=== PATIENT | female | born 1935 | race Caucasian/White ===

== ENCOUNTER 2016-09-17 19:57 | Inpatient (IN) | payer MEDICARE, BC ==
[2016-09-17] MEDS ORDERED: ACETAMINOPHEN 325 MG TABLET PO ONE (21:10)
--- NOTE | 2016-09-17 21:12 | ER Document Report ---
ED Hip Pain/Injury - General Chief Complaint: Hip Pain Stated Complaint: HIP PAIN Time Seen by Provider: 09/17/16 20:24 Mode of Arrival: Medic Information source: Patient, Relative Notes: This is an 81-year-old female who presents with left hip pain after falling at [employer]. She states that about 1900 she was using her walker to walk in the aisle of the [employer] and she slipped and fell onto her left hip. She did not hit her head and she did not lose consciousness. She complains of left hip pain and left foot pain. She has been able to ambulate a few steps but with significant pain. Of note she has a prior left hip replacement done in 2011 and had a periprosthetic spiral femur fracture in February 2016. TRAVEL OUTSIDE OF THE [place] IN LAST 30 DAYS: No - Related Data Allergies/Adverse Reactions: naproxen Allergy (Verified 03/03/16 11:18) Past Medical History - General Information source: Patient, [facility] Records - Social History Smoking Status: Never Smoker Chew tobacco use (# tins/day): No Frequency of alcohol use: None Drug Abuse: None Family History: None Patient has suicidal ideation: No Patient has homicidal ideation: No - Past Medical History Cardiac Medical History: Reports: Hx Hypercholesterolemia, Hx Hypertension Renal/ Medical History: Denies: Hx Peritoneal Dialysis Musculoskeltal Medical History: Reports Hx Arthritis Psychiatric Medical History: Denies: Hx Depression Past Surgical History: Reports: Hx Hysterectomy, Hx Mastectomy - L, Hx Orthopedic Surgery - Bilat Hip Replacement, L Knee Replacement, Hx Pacemaker, Hx Tubal Ligation - Immunizations Hx Diphtheria, Pertussis, Tetanus Vaccination: Yes Hx Pneumococcal Vaccination: 05/11/14 Review of Systems - Review of Systems Constitutional: denies: Chills, Fever EENT: No symptoms reported Cardiovascular: No symptoms reported. denies: Chest pain, Palpitations, Syncope , Dizziness Respiratory: No symptoms reported Gastrointestinal: No symptoms reported Genitourinary: No symptoms reported Musculoskeletal: See HPI Skin: No symptoms reported Hematologic/Lymphatic: No symptoms reported Neurological/Psychological: No symptoms reported Physical Exam - Vital signs Vitals: Pulse Ox 98 09/17/16 20:04 - Notes Notes: PHYSICAL EXAMINATION: GENERAL: Well-appearing elderly female, smiling pleasant and conversant, well- nourished and in no acute distress. HEAD: Atraumatic, normocephalic. EYES: Pupils equal round and reactive to light, extraocular movements intact, sclera anicteric, conjunctiva are normal. ENT: nares patent, oropharynx clear without exudates. Moist mucous membranes. NECK: Normal range of motion, supple without lymphadenopathy LUNGS: Breath sounds clear to auscultation bilaterally and equal. No wheezes rales or rhonchi. HEART: Regular rate and rhythm without murmurs ABDOMEN: Soft, nontender, normoactive bowel sounds. No guarding, no rebound. No masses appreciated. EXTREMITIES: Limited ROM L hip secondary to pain. No shortening/ext rotation. DNVI. +TTP to 4th and 5th toes and MT's on the left foot. Cap refill less than 3 seconds, foot warm. NEUROLOGICAL: Cranial nerves grossly intact. Normal speech. No gross focal motor or sensory deficits. PSYCH: Normal mood, normal affect. SKIN: Warm, Dry, normal turgor, no rashes or lesions noted. Course - Re-evaluation Re-evalutation: 09/18/16 Discussed x-ray findings with ortho Dr. Gil, who recommends nonoperative management and non-weightbearing, follow up in office. Discussed with patient and family. Unfortunately, pt unable to go home in nonweightbearing status and will require SNF/rehab just as she did in [facility] for similar injury. Pt requests to return to [facility] in [place]. Discussed with hospitalist Dr. Prather, will admit OBS for discharge planning assistance to arrange placement. - Vital Signs Vital signs: Temp Pulse Resp BP Pulse Ox 97.8 F 85 16 161/79 H 96 09/17/16 20:10 09/17/16 20:10 09/17/16 20:10 09/17/16 22:01 09/17/16 22:01 - Laboratory Result Diagrams: 09/17/16 23:06 09/17/16 23:06 Discharge - Discharge Clinical Impression: Left femoral shaft fracture Qualifiers: Encounter type: initial encounter Fracture type: closed Fracture morphology: other fracture Qualified Code(s): S72.392A - Other fracture of shaft of left femur, initial encounter for closed fracture Condition: Stable Disposition: ADMITTED OBSERVATION Admitting Provider: Hospitalist - Dr. Prather Unit Admitted: Medical Floor
[2016-09-17] MEDS ORDERED: CARISOPRODOL 350 MG TABLET PO PRN (21:51)
[2016-09-17] MEDS ORDERED: OXYCODONE-ACETAMINOPHEN 5-325 MG TABLET PO PRN (21:51)
[2016-09-17] MEDS ORDERED: IPRATROPIUM/ALBUTEROL 0.5-2.5 MG/3 ML AMPUL NEB PRN (21:52)
[2016-09-17] MEDS ORDERED: ONDANSETRON HCL INJ/PF 4 MG/2 ML SDV IV PRN (21:52)
[2016-09-17] MEDS ORDERED: MAG HYDROX/AL HYDROX/SIMETH SUSP 30 ML UDCUP PO PRN (21:52)
[2016-09-17] MEDS ORDERED: ACETAMINOPHEN 325 MG TABLET PO PRN (21:52)
[2016-09-17] MEDS ORDERED: MAGNESIUM HYDROXIDE SUSP 30 ML UDCUP PO PRN (21:52)
[2016-09-17] MEDS ORDERED: NORMAL SALINE 1000 ML 1,000 ML IV ONE (21:55)
[2016-09-17] MEDS ORDERED: ERGOCALCIFEROL 5000 UNIT PO SCH (22:00)
[2016-09-17 23:14] LABS: ABSOLUTE BASOPHILS # (AUTO) 0.1 10^3/uL (0.0-0.2); ABSOLUTE EOSINOPHILS # (AUTO) 0.1 10^3/uL (0.0-0.6); ABSOLUTE LYMPHOCYTES (AUTO) 1.9 10^3/uL (0.5-4.7); ABSOLUTE MONOCYTES (AUTO) 0.8 10^3/uL (0.1-1.4); ABSOLUTE NEUT (AUTO) 9.9 10^3/uL (1.7-8.2); BASOPHILS % (AUTO) 0.6 % (0-2); HEMATOCRIT 36.8 % (36.0-47.0); HEMOGLOBIN 12.3 g/dL (12.0-15.5); HGB HCT DIFFERENCE 0.1; LYMPHOCYTES % (AUTO) 15.2 % (13-45); MEAN CORPUSCULAR HEMOGLOBIN 28.2 pg (27.0-33.4); MEAN CORPUSCULAR HGB CONC 33.4 g/dL (32.0-36.0); MEAN CORPUSCULAR VOLUME 84 fl (80-97); MONOCYTES % (AUTO) 5.9 % (3-13); RED BLOOD COUNT 4.36 10^6/uL (3.72-5.28); RED CELL DISTRIBUTION WIDTH 13.9 % (11.5-14.0); SEGMENTED NEUTROPHILS % (AUTO) 77.3 % (42-78); WHITE BLOOD COUNT 12.8 10^3/uL (4.0-10.5)
[2016-09-17 23:28] LABS: ANION GAP 12 (5-19); BLOOD UREA NITROGEN 26 mg/dL (7-20); CALCIUM 9.5 mg/dL (8.4-10.2); CARBON DIOXIDE 24 mmol/L (22-30); CHLORIDE 108 mmol/L (98-107); CREATININE RESULT 0.84 mg/dL (0.52-1.25); GLUCOSE 119 mg/dL (75-110); POTASSIUM 4.5 mmol/L (3.6-5.0); SODIUM 144.4 mmol/L (137-145)
[2016-09-18] MEDS ORDERED: HYDRALAZINE HCL INJ/PF 20 MG/1 ML SDV IV PRN (00:25)
[2016-09-18] MEDS: HEPARIN SOD (PORCINE) 5,000 UNIT/ML 1 ML SYRINGE SUBCUT SCH ×4 (02:07→21:10)
[2016-09-18] MEDS: VALSARTAN 160 MG TABLET PO SCH ×3 (02:07→21:12)
--- NOTE | 2016-09-18 02:40 | PDOC H&P ---
History of Present Illness Admission Date/PCP: 09/17/16 21:52 BEATRIZ BUTT Patient complains of: Left hip pain History of Present Illness: LISETH BARBOSA is a 81 year old female with a past medical history of CVA and residual left-sided weakness, bilateral hip replacement, hypertension, osteoarthritis, dyslipidemia and permanent pacemaker. Who is in her usual state of health until approximately 1 hour prior to presentation sustaining a fall to the floor from a seated position while trying to align her walker. Patient had exceptional pain the left hip and unable to arise, she denies sustaining any other injury, loss of consciousness or incontinence. She denies new medications and otherwise feels well. In the emergency room she's found to have a left-sided lateral proximal femoral metaphyseal fracture with large fragment but without dislocation of arthroplasty. However she is and exceptional pain and unable to weight bear weight and referred to the hospitalist for admission Past Medical History Cardiac Medical History: Reports: Hyperlipidema, Hypertension Musculoskeltal Medical History: Reports: Arthritis Psychiatric Medical History: Denies: Depression Past Surgical History Past Surgical History: Reports: Hysterectomy, Mastectomy - L, Orthopedic Surgery - Bilat Hip Replacement, L Knee Replacement, Pacemaker, Tubal Ligation Social History Information Source: Patient, [facility] Records Lives with: Alone Smoking Status: Never Smoker Frequency of Alcohol Use: None Hx Recreational Drug Use: No Drugs: None Hx Prescription Drug Abuse: No - Advance Directive Resuscitation Status: Full Code Family History Family History: Hypertension Parental Family History Reviewed: Yes Children Family History Reviewed: Yes Sibling(s) Family History Reviewed.: Yes Medication/Allergy Home Medications: Aspirin [[place] Aspirin] 81 mg PO DAILY 03/03/16 Ergocalciferol (Vitamin D2) [Vitamin D] 5,000 unit PO Q7D 03/03/16 Methimazole [Tapazole] 10 mg PO DAILY 03/03/16 Valsartan [Diovan] 160 mg PO BID 03/03/16 Vit C/E/Zn/Coppr/Lutein/Zeaxan [Preservision Areds 2 Softgel] 2 each PO DAILY Carisoprodol [Soma 350 mg Tablet] 350 mg PO HSP PRN tablet 03/07/16 Docusate Sodium [Colace 100 mg Capsule] 100 mg PO BID capsule 03/07/16 Oxycodone HCl/Acetaminophen [Percocet 5-325 mg Tablet] 1 tab PO Q4HP PRN #30 tablet 03/07/16 Polyethylene Glycol 3350 [Miralax Powder 17 gm/Packet] 17 gm PO DAILY powd.pack 03/07/16 Ubidecarenone [Ultra Coq10] 100 mg PO .DAILY 03/07/16 Allergies/Adverse Reactions: naproxen Allergy (Verified 03/03/16 11:18) Review of Systems Constitutional: ABSENT: chills, fever(s), headache(s), weight gain, weight loss Eyes: ABSENT: visual disturbances Ears: ABSENT: hearing changes Cardiovascular: ABSENT: chest pain, dyspnea on exertion, edema, orthropnea, palpitations Respiratory: ABSENT: cough, hemoptysis Gastrointestinal: ABSENT: abdominal pain, constipation, diarrhea, hematemesis, hematochezia, nausea, vomiting Genitourinary: ABSENT: dysuria, hematuria Musculoskeletal: ABSENT: joint swelling Integumentary: ABSENT: rash, wounds Neurological: ABSENT: abnormal gait, abnormal speech, confusion, dizziness, focal weakness, syncope Psychiatric: ABSENT: anxiety, depression, homidical ideation, suicidal ideation Endocrine: ABSENT: cold intolerance, heat intolerance, polydipsia, polyuria Hematologic/Lymphatic: ABSENT: easy bleeding, easy bruising Physical Exam Vital Signs: Temp Pulse Resp BP Pulse Ox 97.8 F 85 16 161/79 H 96 09/17/16 20:10 09/17/16 20:10 09/17/16 20:10 09/17/16 22:01 09/17/16 22:01 General appearance: PRESENT: cooperative, mild distress, well-developed, well- nourished Head exam: PRESENT: atraumatic, normocephalic Eye exam: PRESENT: conjunctiva pink, EOMI, PERRLA. ABSENT: scleral icterus Ear exam: PRESENT: normal external ear exam Mouth exam: PRESENT: moist, tongue midline Neck exam: ABSENT: carotid bruit, JVD, lymphadenopathy, thyromegaly Respiratory exam: PRESENT: clear to auscultation donnell. ABSENT: rales, rhonchi, wheezes Cardiovascular exam: PRESENT: RRR. ABSENT: diastolic murmur, rubs, systolic murmur Pulses: PRESENT: normal dorsalis pedis pul Vascular exam: PRESENT: normal capillary refill GI/Abdominal exam: PRESENT: normal bowel sounds, soft. ABSENT: distended, guarding, mass, organolmegaly, rebound, tenderness Rectal exam: PRESENT: deferred Extremities exam: PRESENT: tenderness - Left hip. ABSENT: calf tenderness, clubbing, full ROM, +1 edema Musculoskeletal exam: PRESENT: deformity, tenderness. ABSENT: full ROM Neurological exam: PRESENT: alert, awake, oriented to person, oriented to place , oriented to time, oriented to situation, CN II-XII grossly intact. ABSENT: motor sensory deficit Psychiatric exam: PRESENT: appropriate affect, normal mood. ABSENT: homicidal ideation, suicidal ideation Skin exam: PRESENT: dry, intact, warm. ABSENT: cyanosis, rash Results Laboratory Results: 09/17/16 23:06 09/17/16 23:06 09/17/16 09/17/16 09/17/16 23:06 23:06 23:06 WBC 12.8 H RBC 4.36 Hgb 12.3 Hct 36.8 MCV 84 MCH 28.2 MCHC 33.4 RDW 13.9 Plt Count 148 L Seg Neutrophils % 77.3 Lymphocytes % 15.2 Monocytes % 5.9 Eosinophils % 1.0 Basophils % 0.6 Absolute Neutrophils 9.9 H Absolute Lymphocytes 1.9 Absolute Monocytes 0.8 Absolute Eosinophils 0.1 Absolute Basophils 0.1 Sodium 144.4 Potassium 4.5 Chloride 108 H Carbon Dioxide 24 Anion Gap 12 BUN 26 H Creatinine 0.84 Est GFR ( Amer) > 60 Est GFR (Non-Af Amer) > 60 Glucose 119 H Calcium 9.5 TSH 0.52 Impressions: Hip X-Ray 09/17/16 00:00 IMPRESSION: Lateral proximal femoral metaphyseal fracture, 42 x 10 x 12 mm fragment. No dislocation of the left total hip arthroplasty. Foot X-Ray 09/17/16 21:11 IMPRESSION: No fracture identified. Assessment & Plan - Diagnosis (1) Closed fracture of proximal end of left femur Qualifiers: Encounter type: initial encounter Qualified Code(s): S72.002A - Fracture of unspecified part of neck of left femur, initial encounter for closed fracture Is this a current diagnosis for this admission?: YesPlan: Secondary to fall complicated by previous total hip, requiring nonweightbearing status and rehabilitation patient is unable to return to independent setting discharge planning consulted patient requesting return to [facility] her former rehabilitation. Consider orthopedic surgery consultation. (2) Fall Qualifiers: Encounter type: initial encounter Qualified Code(s): W19.XXXA - Unspecified fall, initial encounter Is this a current diagnosis for this admission?: YesPlan: Mechanical fall without evidence for syncope or seizure or continuing factor (3) Hypertension Qualifiers: Hypertension type: essential hypertension Qualified Code(s): I10 - Essential (primary) hypertension Is this a current diagnosis for this admission?: YesPlan: Outpatient regiment with when necessary hydralazine (4) Left leg pain Is this a current diagnosis for this admission?: YesPlan: Symptomatically management, nonweightbearing status, consider orthopedic surgery consult - Time Time Spent: 30 to 50 Minutes - Inpatient Certification Medical Necessity: Need for Pain Control, Risk of Complication if Not Cared For in Hospital
[2016-09-18] MEDS ORDERED: METHIMAZOLE 5 MG TABLET PO SCH (10:00)
[2016-09-18] MEDS ORDERED: (PENDING PHARMACY ID) (Vit C/E/Zn/Coppr/Lutein/Zeaxan [Preservision Areds 2 Softgel] 1 EAC PO SCH (10:00)
[2016-09-18] MEDS: POLYETHYLENE GLYCOL 3350 POWDER 17 GM/1 PACKET PO SCH (10:24)
[2016-09-18] MEDS: DOCUSATE SODIUM 100 MG CAPSULE PO SCH ×2 (10:24→17:26)
[2016-09-18] MEDS: LACTULOSE SYRUP 20 GM/30 ML UDCUP PO SCH (10:24)
[2016-09-18] MEDS: ASPIRIN 81 MG TABLET, CHEWABLE PO SCH (10:24)
[2016-09-18] MEDS ORDERED: ONDANSETRON HCL INJ/PF 4 MG/2 ML SDV IV PRN (10:43)
--- NOTE | 2016-09-18 13:49 | PDOC PROGRESS REPORT ---
Subjective Progress Note for:: 09/18/16 Subjective:: Patient has no complaints this morning. She says she has minimal pain uses Tylenol. She managed to get from the bed to the chair today without much difficulty. She wants to know when she will be moved to her rehabilitation facility. Physical Exam Vital Signs: Temp Pulse Resp BP Pulse Ox 98.8 F 71 20 120/56 L 100 09/18/16 11:46 09/18/16 11:46 09/18/16 11:46 09/18/16 11:46 09/18/16 11:46 Intake & Output 09/17/16 09/18/16 09/19/16 06:59 06:59 06:59 Intake Total 50 Balance 50 Weight 69.9 kg Physical exam: Gen.: This a well-developed well-nourished appearing white female resting in her chair beginning lunch currently in no acute distress. The patient seems very vibrant. HEENT: Normocephalic atraumatic trachea is midline sclera are not icteric Heart: Regular rate and rhythm no murmurs rubs or gallops. Lungs: Clear to auscultation bilaterally with equal as involving the chest. Abdomen: Soft nontender, nondistended Extremities: No clubbing cyanosis minimal edema. Her left knee looks slightly larger than the right. There is a surgical scar over the left knee. There is no warmth or tenderness to palpation of the knee. There is some swelling of the rest of the lower extremity are trace to 1+. 1+ posterior tibialis pulses bilaterally. Neuro she is awake alert oriented cranial nerves are grossly intact. Again she is quite vibrant. Results Laboratory Results: 09/17/16 23:06 09/17/16 23:06 09/17/16 09/17/16 09/17/16 23:06 23:06 23:06 WBC 12.8 H RBC 4.36 Hgb 12.3 Hct 36.8 MCV 84 MCH 28.2 MCHC 33.4 RDW 13.9 Plt Count 148 L Seg Neutrophils % 77.3 Lymphocytes % 15.2 Monocytes % 5.9 Eosinophils % 1.0 Basophils % 0.6 Absolute Neutrophils 9.9 H Absolute Lymphocytes 1.9 Absolute Monocytes 0.8 Absolute Eosinophils 0.1 Absolute Basophils 0.1 Sodium 144.4 Potassium 4.5 Chloride 108 H Carbon Dioxide 24 Anion Gap 12 BUN 26 H Creatinine 0.84 Est GFR ( Amer) > 60 Est GFR (Non-Af Amer) > 60 Glucose 119 H Calcium 9.5 TSH 0.52 Impressions: Hip X-Ray 09/17/16 00:00 IMPRESSION: Lateral proximal femoral metaphyseal fracture, 42 x 10 x 12 mm fragment. No dislocation of the left total hip arthroplasty. Foot X-Ray 09/17/16 21:11 IMPRESSION: No fracture identified. Assessment & Plan - Diagnosis (1) Left femoral shaft fracture Qualifiers: Encounter type: initial encounter Fracture type: closed Fracture morphology: other fracture Qualified Code(s): S72.392A - Other fracture of shaft of left femur, initial encounter for closed fracture Plan: Fractures nondisplaced. At this point don't believe there is much that can be done surgically for it. This was discussed with the orthopedic service by the ER physician. Nonweightbearing status and follow-up in the orthopedic office. (2) Fall Qualifiers: Encounter type: initial encounter Qualified Code(s): W19.XXXA - Unspecified fall, initial encounter Is this a current diagnosis for this admission?: YesPlan: Follow-up precautions. The patient did not get dizzy and fall. She was trying to get up from a seated position was adjusting her walker when she fell from her chair. Consult PT. She would like to be transferred to rehabilitation facility. Unfortunately, she is in observation status. I constitution party had a discussion about this with discharge planning and they will speak with the patient about her options. (3) Hemiparesis affecting left side as late effect of cerebrovascular accident Plan: This is from an old stroke. Patient is stable. (4) Hypertension Qualifiers: Hypertension type: essential hypertension Qualified Code(s): I10 - Essential (primary) hypertension Is this a current diagnosis for this admission?: YesPlan: Stable. Continue home medications (5) Hyperthyroidism Plan: Continue methimazole. Follow-up as an outpatient. - Time Time Spent with patient: 25-34 minutes Anticipated discharge: SNF - Inpatient Certification Medical Necessity: Need Close Monitoring Due to Risk of Patient Decompensation
[2016-09-18] MEDS ORDERED: METHIMAZOLE 5 MG TABLET PO ONE (15:00)
[2016-09-18] MEDS: OXYCODONE-ACETAMINOPHEN 5-325 MG TABLET PO PRN (20:10)
[2016-09-19 05:01] LABS: ABSOLUTE BASOPHILS # (AUTO) 0.1 10^3/uL (0.0-0.2); ABSOLUTE EOSINOPHILS # (AUTO) 0.4 10^3/uL (0.0-0.6); ABSOLUTE MONOCYTES (AUTO) 0.8 10^3/uL (0.1-1.4); ABSOLUTE NEUT (AUTO) 4.5 10^3/uL (1.7-8.2); EOSINOPHILS % (AUTO) 4.2 % (0-6); HEMATOCRIT 31.6 % (36.0-47.0); HEMOGLOBIN 10.7 g/dL (12.0-15.5); HGB HCT DIFFERENCE 0.5; LYMPHOCYTES % (AUTO) 34.1 % (13-45); MEAN CORPUSCULAR HEMOGLOBIN 28.5 pg (27.0-33.4); MEAN CORPUSCULAR HGB CONC 33.7 g/dL (32.0-36.0); MEAN CORPUSCULAR VOLUME 85 fl (80-97); MONOCYTES % (AUTO) 9.5 % (3-13); RED BLOOD COUNT 3.74 10^6/uL (3.72-5.28); RED CELL DISTRIBUTION WIDTH 13.7 % (11.5-14.0); SEGMENTED NEUTROPHILS % (AUTO) 51.2 % (42-78); WHITE BLOOD COUNT 8.7 10^3/uL (4.0-10.5)
[2016-09-19 05:20] LABS: ANION GAP 9 (5-19); BLOOD UREA NITROGEN 24 mg/dL (7-20); CALCIUM 8.6 mg/dL (8.4-10.2); CARBON DIOXIDE 24 mmol/L (22-30); CHLORIDE 109 mmol/L (98-107); CREATININE RESULT 0.85 mg/dL (0.52-1.25); GLUCOSE 108 mg/dL (75-110); MAGNESIUM 1.9 mg/dL (1.6-2.3); POTASSIUM 4.1 mmol/L (3.6-5.0)
[2016-09-19] MEDS: HEPARIN SOD (PORCINE) 5,000 UNIT/ML 1 ML SYRINGE SUBCUT SCH ×3 (05:44→21:28)
[2016-09-19] MEDS: LACTULOSE SYRUP 20 GM/30 ML UDCUP PO SCH (09:17)
[2016-09-19] MEDS: ASPIRIN 81 MG TABLET, CHEWABLE PO SCH (09:21)
[2016-09-19] MEDS: VALSARTAN 160 MG TABLET PO SCH ×2 (09:21→21:28)
[2016-09-19] MEDS: DOCUSATE SODIUM 100 MG CAPSULE PO SCH ×2 (09:21→17:56)
[2016-09-19] MEDS: ACETAMINOPHEN 325 MG TABLET PO PRN ×2 (09:21→21:25)
[2016-09-19] MEDS: POLYETHYLENE GLYCOL 3350 POWDER 17 GM/1 PACKET PO SCH (09:22)
--- NOTE | 2016-09-19 13:43 | Physician Advisory Note ---
Physician Advisor ProgressNote .: Pursuant to the plan for [facility], I have reviewed the medical record for this patient. Physician Advisor Statement: Asked by attending today to review chart r.e. status - she feels pt should be Inpatient. Possible documentation opportunities if attending agrees: 1. "Acute large nondisplaced lateral proximal metaphyseal fx with large fragment [id number], without dislocation of arthroplasty - fx is pathologic due to osteoporosis" (or "suspected osteoporosis"? - PT note states (+) osteoporosis, x-rays don't comment on this.) 2. "arteriosclerotic cerebrovascular dz" 3. ? - "intravascular volume depletion" - BUN/Cr ratio still >20 - would she benefit from IVF, or does attending think this might be too risky for producing Ac CHF? As always, if concerned about any unstable VS or abnormal labs, please comment on them & note what doing about them, & please document each day the potential clinical problems you are concerned could occur if pt not kept in hospital for tx at this time. Discussion: 80yo female w/ chronic co-morbidities including HTN, HLD, chronic Lt hemiparesis due to CVA in past, gait d/o requiring walker at baseline, hyperthyroidism on Tapazole, with pacemaker, osteoporosis (documented in PT note), bilat THRs (Lt in 2011), Lt periprosthetic spiral fx in Feb 2016 after fall (daughters unable to help her get up off the floor after fall at that point), Lt TKR, Lt mastectomy due to breast CA, osteoarthritis - who at baseline uses multiple assistive devices at home, and the help of 2 daughters, to manage her ADLs (was modified independent functional status with their help prior to this latest fall ) - presented 5/10 PM to ED after a mechanical fall from seated position, w/Lt hip "exceptional pain", limited ROM Lt hip due to pain, unable to arise or bear wt. (+) WBC 12.8, Hgb 12.3, plts 148, BUN 26 w/Cr 0.84. Xray reports noted. H&P noes (+)mild distress, (+)tenderness, (+)deformity. (+) LLE swelling tr-1+. Ortho indicated nothing can be done surgically, but patient must be kept non- weight-bearing LLE for a few weeks. Attending ordered falls precautions, prn Percocet, DCP & PT consults, PRN IV Zofran, prn IV hydralazine, I/Os, VS q4h, daily wts, O2 2L, heparin SubQ q8h for DVT prophylaxis. Status: Initially Outpt Obs - with pain & inability to weight-bear with acute femur fx that is non-surgical & tx'd with po pain meds, PT. However, after 2 MNs of hospital care now, pt still not able to begin weight- bearing & go home. Discussed with attending. Pt remains osteoporotic, so remains at high risk for additional fx.s with any, even minor, falls, as she has already done 2x in the past year. - She remains at high risk for further falls per PT eval today. This is related to her impaired standing balance, and decreased strength of all extremities but worse on the Lt,with safety awareness only "fair". A pt with 1 leg non-weight bearing needs to overuse their other extremities compared to baseline in order to mobilize, and her other extremities are not strong, and her endurance is only "fair". Her current increased falls risk is only worsened by the adjustments to normal mobility required to mobilize without weight-bearing on her LLE when she was already needing a walker for stability when she was using both legs at full weight-bearing. - Patient only able to hop on Rt leg, with help of walker & 1 assist, for 5 ft distance total today w/PT. PT recommends continued PT rehabilitation. -She just had another fall with fx of the same hip 7 months ago, requiring SNF rehab before she was able to manage at home again. - Currently, her functional mobility is 60-79% impaired, with goal of getting to <19% impaired with continued PT. She needs continued skilled PT, & likely SNF rehab, before she can safely be d/c 'd home. Tx in inpatient hospital setting medically reasonable & necessary to protect pt' s health, safety, & medical condition. Appropriate to change to Inpatient status. Discussed with attending & UM. Thanks for your help with documentation accuracy/specificity improvement! Barbra Javier MD [facility] Physician Advisor, Fellow of Hospital Medicine
--- NOTE | 2016-09-19 15:40 | PDOC PROGRESS REPORT ---
Subjective Progress Note for:: 09/19/16 Subjective:: The patient complains of pain with movement. She work with physical therapy today. She was able to ambulate 5 feet. Unfortunately because she cannot bear weight on the affected side, she had to hop in order to transition from bed to chair. During this time she was only able to get 5 feet in distance. She describes excruciating 5 out of 5 pain with physical therapist. As per my conversation with the physical therapist the patient took quite a bit of time just ambulating 5 feet. She currently denies any chest pain or shortness of breath. Physical Exam Vital Signs: Temp Pulse Resp BP Pulse Ox 99.4 F 77 14 140/53 H 95 09/19/16 11:27 09/19/16 12:28 09/19/16 12:28 09/19/16 11:27 09/19/16 12:28 Physical exam: Gen.: This a well-developed well-nourished appearing white female resting in her chair currently in no acute distress. Heart: Regular rate and rhythm no murmurs rubs or gallops. Lungs: Clear to auscultation bilaterally with equal as involving the chest. Abdomen: Soft nontender, nondistended Extremities: No clubbing cyanosis minimal edema. DAVE hose are on. 1+ posterior tibialis pulses bilaterally. Neuro she is awake alert oriented cranial nerves are grossly intact. Again she is quite vibrant. Results Impressions: Hip X-Ray 09/17/16 00:00 IMPRESSION: Lateral proximal femoral metaphyseal fracture, 42 x 10 x 12 mm fragment. No dislocation of the left total hip arthroplasty. Foot X-Ray 09/17/16 21:11 IMPRESSION: No fracture identified. Assessment & Plan - Diagnosis (1) Left femoral shaft fracture Qualifiers: Encounter type: initial encounter Fracture type: closed Fracture morphology: other fracture Qualified Code(s): S72.392A - Other fracture of shaft of left femur, initial encounter for closed fracture Plan: Fractures nondisplaced. At this point don't believe there is much that can be done surgically for it. This was discussed with the orthopedic service by the ER physician. Nonweightbearing status and follow-up in the orthopedic office. Continue physical therapy. Patient will need placement in subacute rehabilitation. (2) Fall Qualifiers: Encounter type: initial encounter Qualified Code(s): W19.XXXA - Unspecified fall, initial encounter Is this a current diagnosis for this admission?: YesPlan: Continue fall precautions. The patient did not get dizzy and fall. She was trying to get up from a seated position and was adjusting her walker when she fell from her chair. Patient continues to be a fall risk. I suspect she has some underlying osteoporosis considering that she broke this hip twice this time it was from a seated position. I have great concern for her safety at home. At this point the patient cannot bear weight and has to hop on her right leg in order to ambulate. 81 years old with a fractured hip and residual weakness on that affected side. Hopping on her right leg in order to ambulate has already begun to cause pain in her right hip. She requires continued physical therapy and has a skilkled need for such. Given her current condition she cannot make it home to begin to participate in a meaningful recovery and an outpatient setting. Therefore, recommend conversion to inpatient status for safety continued physical therapy. 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 Patient is stable. (4) Hypertension Qualifiers: Hypertension type: essential hypertension Qualified Code(s): I10 - Essential (primary) hypertension Is this a current diagnosis for this admission?: YesPlan: Stable. Continue home medications (5) Hyperthyroidism Plan: Continue methimazole. Follow-up as an outpatient. - Time Time Spent with patient: 35 or more minutes
[2016-09-20] MEDS: HEPARIN SOD (PORCINE) 5,000 UNIT/ML 1 ML SYRINGE SUBCUT SCH ×3 (05:38→20:07)
[2016-09-20] MEDS: ACETAMINOPHEN 325 MG TABLET PO PRN (05:39)
[2016-09-20] MEDS: ASPIRIN 81 MG TABLET, CHEWABLE PO SCH (10:05)
[2016-09-20] MEDS: DOCUSATE SODIUM 100 MG CAPSULE PO SCH ×2 (10:05→20:08)
[2016-09-20] MEDS: VALSARTAN 160 MG TABLET PO SCH ×2 (10:05→20:09)
[2016-09-20] MEDS: METHIMAZOLE 5 MG TABLET PO SCH (10:05)
[2016-09-20] MEDS: POLYETHYLENE GLYCOL 3350 POWDER 17 GM/1 PACKET PO SCH (10:07)
[2016-09-20] MEDS: LACTULOSE SYRUP 20 GM/30 ML UDCUP PO SCH (10:07)
--- NOTE | 2016-09-20 14:00 | PDOC PROGRESS REPORT ---
Subjective Progress Note for:: 09/20/16 Subjective:: The patient complains of pain with movement. She work with physical therapy today. She was able to ambulate 5 feet again today. Complains of pain with moving. Physical Exam Vital Signs: Temp Pulse Resp BP Pulse Ox 98.9 F 80 18 131/63 H 96 09/19/16 23:51 09/19/16 23:51 09/19/16 23:51 09/19/16 23:51 09/19/16 23:51 Intake & Output 09/19/16 09/20/16 09/21/16 06:59 06:59 06:59 Intake Total 350 Output Total 0 Balance 350 Weight 71.2 kg Physical exam: Gen.: This a well-developed well-nourished appearing white female resting in her chair currently in no acute distress. Heart: Regular rate and rhythm no murmurs rubs or gallops. Lungs: Clear to auscultation bilaterally with equal as involving the chest. Abdomen: Soft nontender, nondistended Extremities: No clubbing cyanosis minimal edema. DAVE hose are on. 1+ posterior tibialis pulses bilaterally. Neuro she is awake alert oriented cranial nerves are grossly intact. Results Impressions: Hip X-Ray 09/17/16 00:00 IMPRESSION: Lateral proximal femoral metaphyseal fracture, 42 x 10 x 12 mm fragment. No dislocation of the left total hip arthroplasty. Foot X-Ray 09/17/16 21:11 IMPRESSION: No fracture identified. Assessment & Plan - Diagnosis (1) Left femoral shaft fracture Qualifiers: Encounter type: initial encounter Fracture type: closed Fracture morphology: other fracture Qualified Code(s): S72.392A - Other fracture of shaft of left femur, initial encounter for closed fracture Plan: Fractures nondisplaced. At this point don't believe there is much that can be done surgically for it. This was discussed with the orthopedic service by the ER physician. Nonweightbearing status and follow-up in the orthopedic office. Continue physical therapy. Patient will need placement in subacute rehabilitation. (2) Fall Qualifiers: Encounter type: initial encounter Qualified Code(s): W19.XXXA - Unspecified fall, initial encounter Is this a current diagnosis for this admission?: YesPlan: Continue fall precautions. (3) Hemiparesis affecting left side as late effect of cerebrovascular accident Plan: This is from an old stroke. Patient is stable. (4) Hypertension Qualifiers: Hypertension type: essential hypertension Qualified Code(s): I10 - Essential (primary) hypertension Is this a current diagnosis for this admission?: YesPlan: Stable. Continue home medications (5) Hyperthyroidism Plan: Continue methimazole. Follow-up as an outpatient. - Time Time Spent with patient: 15-24 minutes - Inpatient Certification Medical Necessity: Significant Comorbidiites Make Outpatient Treatment Too Risky
[2016-09-20] MEDS: OXYCODONE-ACETAMINOPHEN 5-325 MG TABLET PO PRN (20:09)
[2016-09-21] MEDS: HEPARIN SOD (PORCINE) 5,000 UNIT/ML 1 ML SYRINGE SUBCUT SCH ×3 (05:52→22:32)
[2016-09-21] MEDS: OXYCODONE-ACETAMINOPHEN 5-325 MG TABLET PO PRN ×2 (05:52→22:32)
[2016-09-21] MEDS: ACETAMINOPHEN 325 MG TABLET PO PRN ×2 (07:34→22:34)
[2016-09-21] MEDS: ASPIRIN 81 MG TABLET, CHEWABLE PO SCH (09:34)
[2016-09-21] MEDS: VALSARTAN 160 MG TABLET PO SCH ×2 (09:34→22:33)
[2016-09-21] MEDS: DOCUSATE SODIUM 100 MG CAPSULE PO SCH ×2 (09:34→17:16)
[2016-09-21] MEDS: LACTULOSE SYRUP 20 GM/30 ML UDCUP PO SCH (09:40)
[2016-09-21] MEDS: POLYETHYLENE GLYCOL 3350 POWDER 17 GM/1 PACKET PO SCH (09:40)
[2016-09-21] MEDS ORDERED: ERGOCALCIFEROL (VITAMIN D2) 50000 UNIT (1.25 MG) CAPSULE PO SCH (10:00)
--- NOTE | 2016-09-21 15:44 | PDOC PROGRESS REPORT ---
Subjective Progress Note for:: 09/21/16 Subjective:: The patient complains of pain with movement. She complains of her left knee and foot hurt. She complains of pain in the opposite hip Physical Exam Vital Signs: Temp Pulse Resp BP Pulse Ox 97.8 F 78 16 123/52 L 98 09/21/16 12:11 09/21/16 12:11 09/21/16 12:11 09/21/16 12:11 09/21/16 12:11 Intake & Output 09/20/16 09/21/16 09/22/16 06:59 06:59 06:59 Intake Total 350 720 Output Total 0 500 Balance 350 220 Weight 71.2 kg Physical exam: Gen.: This a well-developed well-nourished appearing white female resting in her chair currently in no acute distress. Heart: Regular rate and rhythm no murmurs rubs or gallops. Lungs: Clear to auscultation bilaterally with equal as involving the chest. Abdomen: Soft nontender, nondistended Extremities: No clubbing cyanosis minimal edema. DAVE hose are on. 1+ posterior tibialis pulses bilaterally. Neuro she is awake alert oriented cranial nerves are grossly intact. Results Impressions: Hip X-Ray 09/17/16 00:00 IMPRESSION: Lateral proximal femoral metaphyseal fracture, 42 x 10 x 12 mm fragment. No dislocation of the left total hip arthroplasty. Foot X-Ray 09/17/16 21:11 IMPRESSION: No fracture identified. Assessment & Plan - Diagnosis (1) Left femoral shaft fracture Qualifiers: Encounter type: initial encounter Fracture type: closed Fracture morphology: other fracture Qualified Code(s): S72.392A - Other fracture of shaft of left femur, initial encounter for closed fracture Plan: Fractures nondisplaced. At this point don't believe there is much that can be done surgically for it. This was discussed with the orthopedic service by the ER physician. Nonweightbearing status for 6 weeks and follow-up in the orthopedic office. Continue physical therapy. Patient will need placement in subacute rehabilitation. (2) Fall Qualifiers: Encounter type: initial encounter Qualified Code(s): W19.XXXA - Unspecified fall, initial encounter Is this a current diagnosis for this admission?: YesPlan: Continue fall precautions. (3) Hemiparesis affecting left side as late effect of cerebrovascular accident Plan: This is from an old stroke. Patient is stable. (4) Hypertension Qualifiers: Hypertension type: essential hypertension Qualified Code(s): I10 - Essential (primary) hypertension Is this a current diagnosis for this admission?: YesPlan: Stable. Continue home medications (5) Hyperthyroidism Plan: Continue methimazole. Follow-up as an outpatient. - Time Time Spent with patient: 25-34 minutes - Inpatient Certification Medical Necessity: Significant Comorbidiites Make Outpatient Treatment Too Risky - It was discussed with patient and her 3 daughters in some detail about all labs versus inpatient status. Currently the patient remains inpatient status. This has been reviewed by our internal physician advisor as well as EHR. At this point there is a difference of opinion is to whether or not the patient can be considered and patient. For now I will leave her status as it is as I do believe this is appropriate. I will speak with discharge planning in the morning.
[2016-09-22] MEDS: HEPARIN SOD (PORCINE) 5,000 UNIT/ML 1 ML SYRINGE SUBCUT SCH ×3 (06:21→21:24)
[2016-09-22] MEDS: LACTULOSE SYRUP 20 GM/30 ML UDCUP PO SCH (09:24)
[2016-09-22] MEDS: POLYETHYLENE GLYCOL 3350 POWDER 17 GM/1 PACKET PO SCH (09:24)
[2016-09-22] MEDS: VALSARTAN 160 MG TABLET PO SCH ×2 (09:28→21:25)
[2016-09-22] MEDS: DOCUSATE SODIUM 100 MG CAPSULE PO SCH ×2 (09:28→17:35)
[2016-09-22] MEDS: METHIMAZOLE 5 MG TABLET PO SCH (09:28)
[2016-09-22] MEDS: ASPIRIN 81 MG TABLET, CHEWABLE PO SCH (09:29)
--- NOTE | 2016-09-22 15:20 | Physician Advisory Note ---
Physician Advisor ProgressNote .: Pursuant to the plan for [facility], I have reviewed the medical record for this patient. Physician Advisor Statement: Re-reviewed case, including subsequent progress notes and the EHR reviews of which this reviewer was unaware at time of last review, re-reviewed CMS guidelines. Discussed case further w/, EHR physician advisor Dr. Rose, & attending. (EHR reviewer said he had even taken this case up to "a higher authority" within his system before finalizing determination.) Re- determination is as follows: From a physician and patient advocate standpoint, it seems most appropriate to make pt Inpt status since she has an acute fx, clearly can't go home after 1MN, & continues to need PT which she can't get at a lower level of care at present because there is no bed for her to go to yet. However, poor ability to mobilize with need for PT is not a sufficient reason for Inpt status per CMS without additional acute medical issue, which she does not have. Osteoporosis and high risk for further falls & fx.s are not sufficient. Pain, even 5/5, is not sufficient unless requiring IV narcotics around the clock to control - which, in many frail elderly pts such as this pt, could cause dangerous hypotension & respiratory depression. There is no mention of need for IVF for intravascular volume depletion, or acute CP that could indicate an acute PE, or significantly dropping H/H that could indicate ongoing acute bleeding, or other acute medical concern in addition to the fx issues. As much as this reviewer would like to be able to support Inpt here, this case simply, on further eval & consideration, does not appear to have met sufficient severity of illness & intensity of service levels to justify Inpatient status this stay. Attending will change order back to "Obs" status, although at this point, technically speaking, pt isn't still needing ongoing short term tx/ assessment/reassessment to decide plan of care now. (Post-discharge reviewers will determine at what point pt became most appropriate for "Outpt in a bed" status, which is not a choice the attending can make in the current computer system for status.) We really need the government to make Medicare cover Inpt care / SNF rehab for acute pelvic/hip fracture patients such as this. CK
--- NOTE | 2016-09-22 15:30 | PDOC PROGRESS REPORT ---
Subjective Progress Note for:: 09/22/16 Subjective:: The patient complains of pain with movement. He says she worked with PT and that 5 feet documented again for her ambulation. She strongly disagrees that she moved to 5 feet. I have spoken with at length with her, the brand planner, and Dr. Barbra Javier with utilization review. Apparently, the patient qualified for observation status but not for inpatient status. At this point she does not qualified to remain here in the hospital. I will need to go back and speak with her again about her options. He made me aware that she does not believe she can go home. We will try and find a rehabilitation facility who will take her. Physical Exam Vital Signs: Temp Pulse Resp BP Pulse Ox 98.6 F 74 17 125/48 L 100 09/22/16 12:00 09/22/16 12:00 09/22/16 12:00 09/22/16 12:00 09/22/16 12:00 Intake & Output 09/21/16 09/22/16 09/23/16 06:59 06:59 06:59 Intake Total 720 780 Output Total 500 Balance 220 780 Weight 71 kg Physical exam: Gen.: This a well-developed well-nourished appearing white female resting in her chair currently in no acute distress. Heart: Regular rate and rhythm no murmurs rubs or gallops. Lungs: Clear to auscultation bilaterally with equal as involving the chest. Abdomen: Soft nontender, nondistended Extremities: No clubbing cyanosis minimal edema. DAVE hose are on. Her feet are up in the recliner today. 1+ posterior tibialis pulses bilaterally. Neuro she is awake alert oriented cranial nerves are grossly intact. Results Impressions: Hip X-Ray 09/17/16 00:00 IMPRESSION: Lateral proximal femoral metaphyseal fracture, 42 x 10 x 12 mm fragment. No dislocation of the left total hip arthroplasty. Foot X-Ray 09/17/16 21:11 IMPRESSION: No fracture identified. Assessment & Plan - Diagnosis (1) Left femoral shaft fracture Qualifiers: Encounter type: initial encounter Fracture type: closed Fracture morphology: other fracture Qualified Code(s): S72.392A - Other fracture of shaft of left femur, initial encounter for closed fracture Plan: Fractures nondisplaced. At this point don't believe there is much that can be done surgically for it. This was discussed with the orthopedic service by the ER physician. Nonweightbearing status for 6 weeks and follow-up in the orthopedic office. Continue physical therapy. Patient will need placement in subacute rehabilitation. We will have to see out best to get her there. (2) Fall Qualifiers: Encounter type: initial encounter Qualified Code(s): W19.XXXA - Unspecified fall, initial encounter Is this a current diagnosis for this admission?: YesPlan: Continue fall precautions. (3) Hemiparesis affecting left side as late effect of cerebrovascular accident Plan: This is from an old stroke. Patient is stable. (4) Hypertension Qualifiers: Hypertension type: essential hypertension Qualified Code(s): I10 - Essential (primary) hypertension Is this a current diagnosis for this admission?: YesPlan: Stable. Continue home medications (5) Hyperthyroidism Plan: Continue methimazole. Follow-up as an outpatient. - Time Time Spent with patient: 15-24 minutes - Inpatient Certification Medical Necessity: Significant Comorbidiites Make Outpatient Treatment Too Risky , Need Close Monitoring Due to Risk of Patient Decompensation
--- NOTE | 2016-09-22 17:05 | Progress Note ---
Provider Note Provider Note: I would back to see the patient along with assortment planner. We called the patient's daughter and had a conversation with the patient's daughter by phone. I notified the patient and her daughter of the utilization review decision to reject inpatient status. I also informed her that the subacute rehabilitation center where she wanted to go with cough $199 per night for room and board and that they would be willing to progress her from the 15th to the 30th. About $ 3000 and did not include physical therapy cough. This is not something the patient can afford. Discharge planning will try to reach out to acute rehabilitation institutions such as [facility], [place], or [facility]. Patient will need OT to evaluate her before referral to these facilities can be made. Her daughters cannot come and pick her up tonight even if she were discharged tonight. So, we will take this opportunity to see if we can arrange for care at an acute rehabilitation facility.
[2016-09-22] MEDS: ACETAMINOPHEN 325 MG TABLET PO PRN (20:06)
[2016-09-23] MEDS: OXYCODONE-ACETAMINOPHEN 5-325 MG TABLET PO PRN (02:40)
[2016-09-23] MEDS: HEPARIN SOD (PORCINE) 5,000 UNIT/ML 1 ML SYRINGE SUBCUT SCH ×3 (06:08→21:35)
[2016-09-23] MEDS: ASPIRIN 81 MG TABLET, CHEWABLE PO SCH (11:31)
[2016-09-23] MEDS: DOCUSATE SODIUM 100 MG CAPSULE PO SCH ×2 (11:31→17:51)
[2016-09-23] MEDS: VALSARTAN 160 MG TABLET PO SCH ×2 (11:32→22:31)
[2016-09-23] MEDS: LACTULOSE SYRUP 20 GM/30 ML UDCUP PO SCH (11:34)
[2016-09-23] MEDS: POLYETHYLENE GLYCOL 3350 POWDER 17 GM/1 PACKET PO SCH (11:34)
--- NOTE | 2016-09-23 15:36 | PDOC PROGRESS REPORT ---
Subjective Progress Note for:: 09/23/16 Subjective:: Reason for visit: Follow-up femoral shaft fracture Hospital course: Per other providers, "LISETH BARBOSA is a 81 year old female with a past medical history of CVA and residual left-sided weakness, bilateral hip replacement, hypertension, osteoarthritis, dyslipidemia and permanent pacemaker. Who is in her usual state of health until approximately 1 hour prior to presentation sustaining a fall to the floor from a seated position while trying to align her walker. Patient had exceptional pain the left hip and unable to arise, she denies sustaining any other injury, loss of consciousness or incontinence. She denies new medications and otherwise feels well. In the emergency room she's found to have a left-sided lateral proximal femoral metaphyseal fracture with large fragment but without dislocation of arthroplasty. However she is and exceptional pain and unable to weight bear weight and referred to the hospitalist for admission. The patient complains of pain with movement. He says she worked with PT and that 5 feet documented again for her ambulation. She strongly disagrees that she moved to 5 feet. I have spoken with at length with her, the scowman, and Dr. Barbra Javier with utilization review. Apparently, the patient qualified for observation status but not for inpatient status. At this point she does not qualified to remain here in the hospital. I will need to go back and speak with her again about her options. He made me aware that she does not believe she can go home. We will try and find a rehabilitation facility who will take her. I would back to see the patient along with scowman. We called the patient's daughter and had a conversation with the patient's daughter by phone. I notified the patient and her daughter of the utilization review decision to reject inpatient status. I also informed her that the subacute rehabilitation center where she wanted to go with cough $199 per night for room and board and that they would be willing to progress her from the 15th to the 30th. About $ 3000 and did not include physical therapy cough. This is not something the patient can afford. Discharge planning will try to reach out to acute rehabilitation institutions such as [place], [place], [place], or [facility]. Patient will need OT to evaluate her before referral to these facilities can be made. Her daughters cannot come and pick her up tonight even if she were discharged tonight. So, we will take this opportunity to see if we can arrange for care at an acute rehabilitation facility." I inherited her care Eleanor and she continues to c/o hip pain with certain positions and ambulation, sharp stabbing, radiating into her knee, relieved by changing position and sitting/resting, worsened with weight bearing and lying on that side. no other complaints including no chst pain, N/V/D, palpitations, abdominal pain, QUICK, dizziness. ROS: as above, total 10 systems reviewed and remaining systems negative. Physical Exam Vital Signs: Temp Pulse Resp BP Pulse Ox 98.4 F 71 17 130/51 H 99 09/23/16 12:55 09/23/16 12:55 09/23/16 12:55 09/23/16 12:55 09/23/16 12:55 Intake & Output 09/22/16 09/23/16 09/24/16 06:59 06:59 06:59 Intake Total 780 940 Output Total 900 Balance 780 40 Weight 71 kg 67.4 kg EXAM GENERAL: NAD; well developed, well nourished; no obese; alert and oriented to person, place, time, situation HEENT: normocephalic, atraumatic; no conjunctival injection, no scleral icterus ; oral mucosa moist; RESPIRATORY: no accessory muscle use, no increased WOB, good air entry bilaterally; no wheezes, rales, rhonchi; no inspiratory crackles CARDIO: no JVD; no systolic murmur; no tachycardia GI: soft; nondistended; normal bowel sounds; non tender; no rebound, rigidity, guarding VASCULAR: no pallor; 2+ radial, DP pulse; normal capillary refill EXTREMITIES: no calf tender; no palpable cords in calf; no clubbing, cyanosis , pedal edema; left hip laterally tender to palpation but no overlying swelling or ecchymosis PSYCH: normal affect, normal mood SKIN: warm; moist; no petechiae; no telengectasias; no jaundice; no rash Results Impressions: Hip X-Ray 09/17/16 00:00 IMPRESSION: Lateral proximal femoral metaphyseal fracture, 42 x 10 x 12 mm fragment. No dislocation of the left total hip arthroplasty. Foot X-Ray 09/17/16 21:11 IMPRESSION: No fracture identified. Status: Imported from PACS Assessment & Plan - Diagnosis (1) Left femoral shaft fracture Qualifiers: Encounter type: initial encounter Fracture type: closed Fracture morphology: other fracture Qualified Code(s): S72.392A - Other fracture of shaft of left femur, initial encounter for closed fracture Is this a current diagnosis for this admission?: YesPlan: Her other providers, orthopedic surgery consult recommended conservative management and no surgery at this time. (2) Hemiparesis affecting left side as late effect of cerebrovascular accident Is this a current diagnosis for this admission?: YesPlan: chronic, stable. (3) Hypertension Qualifiers: Hypertension type: essential hypertension Qualified Code(s): I10 - Essential (primary) hypertension Is this a current diagnosis for this admission?: YesPlan: stable (4) Hyperthyroidism Is this a current diagnosis for this admission?: YesPlan: stable on current regimen. - Time Time Spent with patient: 25-34 minutes Anticipated discharge: Other - OT evaluated this morning, awaiting bed offers from acute rehabilitation centers. She may need to go home with home health if no bed available.
--- NOTE | 2016-09-23 20:57 | PDOC CONSULTATION ---
History of Present Illness Admission Date/PCP: 09/19/16 15:22 BEATRIZ BUTT Patient complains of: Left Hip Pain History of Present Illness: Hospital course: Per other providers, "LISETH BARBOSA is a 81 year old female with a past medical history of CVA and residual left-sided weakness, bilateral hip replacement, hypertension, osteoarthritis, dyslipidemia and permanent pacemaker. Who is in her usual state of health until approximately 1 hour prior to presentation sustaining a fall to the floor from a seated position while trying to align her walker. Patient had exceptional pain the left hip and unable to arise, she denies sustaining any other injury, loss of consciousness or incontinence. She denies new medications and otherwise feels well. In the emergency room she's found to have a left-sided lateral proximal femoral metaphyseal fracture with large fragment but without dislocation of arthroplasty. However she is and exceptional pain and unable to weight bear weight and referred to the hospitalist for admission. Currently patient complains of pain especially with motion. She states the pain is different than her previous periprosthetic fracture that pain was more along the outer aspect of her hip. The pain is mainly in the inner aspect of her hip. Pain is 10/10 with attempted ambulation. Denies numbness and tingling of the lower extremity. Date of injury 09/17/16 Past Medical History Cardiac Medical History: Reports: Hyperlipidema, Hypertension Musculoskeltal Medical History: Reports: Arthritis Psychiatric Medical History: Denies: Depression Past Surgical History Past Surgical History: Reports: Hysterectomy, Mastectomy - L, Orthopedic Surgery - Bilat Hip Replacement, L Knee Replacement, Pacemaker, Tubal Ligation Social History Lives with: Alone Smoking Status: Never Smoker Frequency of Alcohol Use: None Hx Recreational Drug Use: No Drugs: None Hx Prescription Drug Abuse: No - Advance Directive Resuscitation Status: Full Code Family History Family History: Hypertension Parental Family History Reviewed: No Children Family History Reviewed: No Sibling(s) Family History Reviewed.: No Medication/Allergy Home Medications: Aspirin [Aspirin 81 mg Chewable Tablet] 81 mg PO QHS 09/18/16 Ergocalciferol (Vitamin D2) [Drisdol 50,000 Unit (1.25MG) Capsule] 1 cap PO BADILLO@ 1000 09/18/16 Methimazole [Tapazole 5 Mg Tablet] 5 mg PO Q48H 09/18/16 Oxycodone HCl/Acetaminophen [Percocet 5-325 mg Tablet] 1 tab PO DAILYP PRN 09/18 Pravastatin Sodium [Pravachol] 40 mg PO QHS 09/18/16 Ubidecarenone/Vit E Acetate [Co Q-10 100 mg Softgel] 1 each PO DAILY 09/18/16 Valsartan [Diovan 160 mg Tablet] 160 mg PO Q12 09/18/16 Vit C/E/Zn/Coppr/Lutein/Zeaxan [Preservision Areds 2 Softgel] 1 each PO BID 03/27 Allergies/Adverse Reactions: naproxen Allergy (Verified 03/03/16 11:18) moxifloxacin [From Avelox] Adverse Reaction (Verified 09/18/16 02:50) tetanus Adverse Reaction (Uncoded 09/18/16 02:51) Review of Systems Constitutional: ABSENT: chills, fever(s), headache(s), weight gain, weight loss Eyes: ABSENT: visual disturbances Ears: ABSENT: hearing changes Cardiovascular: ABSENT: chest pain, dyspnea on exertion, edema, orthropnea, palpitations Respiratory: ABSENT: cough, hemoptysis Gastrointestinal: ABSENT: abdominal pain, constipation, diarrhea, hematemesis, hematochezia, nausea, vomiting Genitourinary: ABSENT: dysuria, hematuria Integumentary: ABSENT: rash, wounds Neurological: ABSENT: abnormal gait, abnormal speech, confusion, dizziness, focal weakness, syncope Psychiatric: ABSENT: anxiety, depression, homidical ideation, suicidal ideation Endocrine: ABSENT: cold intolerance, heat intolerance, menstrual abnormalities, polydipsia, polyuria Hematologic/Lymphatic: ABSENT: easy bleeding, easy bruising, lymphadenopathy Physical Exam Vital Signs: Temp Pulse Resp BP Pulse Ox 98.3 F 42 L 18 122/43 L 99 09/23/16 20:24 09/23/16 20:24 09/23/16 20:24 09/23/16 20:24 09/23/16 20:24 Intake & Output 09/22/16 09/23/16 09/24/16 06:59 06:59 06:59 Intake Total 780 940 570 Output Total 900 Balance 780 40 570 Weight 71 kg 67.4 kg General appearance: PRESENT: no acute distress, well-developed, well-nourished Head exam: PRESENT: atraumatic, normocephalic Eye exam: PRESENT: conjunctiva pink, EOMI, PERRLA. ABSENT: scleral icterus Ear exam: PRESENT: normal external ear exam Mouth exam: PRESENT: moist, tongue midline Neck exam: PRESENT: full ROM. ABSENT: carotid bruit, JVD, lymphadenopathy, thyromegaly Respiratory exam: PRESENT: unlabored Cardiovascular exam: PRESENT: RRR. ABSENT: diastolic murmur, rubs, systolic murmur Pulses: PRESENT: normal dorsalis pedis pul, +2 pedal pulses bilateral Vascular exam: PRESENT: normal capillary refill GI/Abdominal exam: PRESENT: normal bowel sounds, soft. ABSENT: distended, guarding, mass, organolmegaly, rebound, tenderness Rectal exam: PRESENT: deferred Musculoskeletal exam: PRESENT: other - Left lower extremity: Tenderness palpation laterally along the proximal femur. No evidence of limb length inequality or rotational aromatic. Pain with logroll in attempted range of motion. Intact plantar flexion/dorsiflexion. Mild tenderness along the heel. Previous total knee incision noted. Neurological exam: PRESENT: alert, awake, oriented to person, oriented to place , oriented to time, oriented to situation, CN II-XII grossly intact. ABSENT: motor sensory deficit Psychiatric exam: PRESENT: appropriate affect, normal mood. ABSENT: homicidal ideation, suicidal ideation Skin exam: PRESENT: dry, intact, warm. ABSENT: cyanosis, rash Results Impressions: Hip X-Ray 09/17/16 00:00 IMPRESSION: Lateral proximal femoral metaphyseal fracture, 42 x 10 x 12 mm fragment. No dislocation of the left total hip arthroplasty. Foot X-Ray 09/17/16 21:11 IMPRESSION: No fracture identified. Status: Image reviewed by me - I have reviewed patient's radiographs of her left hip which demonstrate nondisplaced periprosthetic femur fracture. No evidence of shortening or prosthetic loosening. Assessment & Plan - Diagnosis (1) Aretha-prosthetic femoral shaft fracture Is this a current diagnosis for this admission?: YesPlan: Patient sustained a nondisplaced periprosthetic left femur fracture. This is similar to her previous injury however more proximal in nature. At this point she will continue nonweightbearing and attempted manipulation but given patient' s age I do feel rehabilitation will be difficult. Since it is now 1 week from her previous injury I will obtain repeat radiographs to ensure maintained nondisplacement. Patient may follow-up in the office in 14 days.
[2016-09-23] MEDS: ACETAMINOPHEN 325 MG TABLET PO PRN (22:31)
[2016-09-24] MEDS: HEPARIN SOD (PORCINE) 5,000 UNIT/ML 1 ML SYRINGE SUBCUT SCH ×3 (06:00→22:30)
[2016-09-24] MEDS: DOCUSATE SODIUM 100 MG CAPSULE PO SCH ×2 (10:00→20:38)
[2016-09-24] MEDS: LACTULOSE SYRUP 20 GM/30 ML UDCUP PO SCH (10:00)
[2016-09-24] MEDS: ASPIRIN 81 MG TABLET, CHEWABLE PO SCH (10:00)
[2016-09-24] MEDS: METHIMAZOLE 5 MG TABLET PO SCH (10:00)
[2016-09-24] MEDS: VALSARTAN 160 MG TABLET PO SCH ×2 (10:00→22:27)
[2016-09-24] MEDS: POLYETHYLENE GLYCOL 3350 POWDER 17 GM/1 PACKET PO SCH (10:00)
--- NOTE | 2016-09-24 16:40 | PROGRESS NOTE E ---
Progress Note NAME: LISETH BARBOSA : 1935 AGE: 81Y DATE: 09/24/2016 ROOM: 407 SUBJECTIVE: The patient continues to report pain in the left hip when standing or with certain movements, interrupting sleep at times. She is working with Physical and Occupational Therapy and making very slow, but steady progress. She is quite anxious about being discharged home today. She reports Dr. Wiggins swung by last night and recommended a repeat x-ray this morning to see if the fracture remains stable given her persistent level of pain. I do not see any orders on the chart from him or a note at this point. However, the computers are down today, limiting communication somewhat. OBJECTIVE: VITAL SIGNS: Nurse's notes reviewed with the nurse at the bedside, vital signs are stable. GENERAL: The patient is sitting in the bedside chair, watching television, clearly in no acute distress, alert and oriented to person, place, and time. She is breathing easily without any respiratory distress. LUNGS: Clear to auscultation bilaterally. ABDOMEN: Soft, nontender and nondistended with good bowel sounds. NEUROLOGIC/MUSCULOSKELETAL: The left side of her body remains weak from a prior stroke, as was noted previously. She has a residual mild hemiparesis there and she does have some persistent pain with flexion of the hip and on weight bearing and tapping of the heel that seems to localize into the left hip itself at about the olecranon bursa. There is no swelling or overlying erythema and she has good pulses at the femoral and popliteal with good sensation distally. ASSESSMENT: LEFT HIP FRACTURE. PLAN: The patient's primary care physician is Dr. Rogers. Given the persistent pain, limiting her mobility, will check the x-ray of the left hip and femur today and see if there has been any progression of this occult fracture and re-consult Dr. Wiggins in the meantime. We are still waiting to hear back from the last of the acute rehab centers to see if anyone is willing to take her in for continued physical and occupational therapy. DICTATING PHYSICIAN: ASHOK DUPREE M.D. [id number] PHY#: [id number] ID: [id number] JOB#: [id number] ACCT: [id number] cc: >
[2016-09-24] MEDS: OXYCODONE-ACETAMINOPHEN 5-325 MG TABLET PO PRN (22:26)
[2016-09-25] MEDS: OXYCODONE-ACETAMINOPHEN 5-325 MG TABLET PO PRN (05:33)
[2016-09-25] MEDS: HEPARIN SOD (PORCINE) 5,000 UNIT/ML 1 ML SYRINGE SUBCUT SCH (05:33)
[2016-09-25] MEDS: ACETAMINOPHEN 325 MG TABLET PO PRN (10:11)
[2016-09-25] MEDS: LACTULOSE SYRUP 20 GM/30 ML UDCUP PO SCH (10:13)
[2016-09-25] MEDS: DOCUSATE SODIUM 100 MG CAPSULE PO SCH (10:13)
[2016-09-25] MEDS: ASPIRIN 81 MG TABLET, CHEWABLE PO SCH (10:13)
[2016-09-25] MEDS: VALSARTAN 160 MG TABLET PO SCH (10:13)
[2016-09-25] MEDS: POLYETHYLENE GLYCOL 3350 POWDER 17 GM/1 PACKET PO SCH (10:14)
[2016-09-25 12:18] VITALS: BP 124/50
--- NOTE | 2016-09-25 16:08 | Progress Note ---
Provider Note Provider Note: patient has suffered left hip fracture of bone surrounding her metallic prothesis and is required to be non weight bearing, toe touch only for the next 6 wks; as a result, transitions from sit to stand, bed to chair, etc. are difficult as she lives alone and has no one at home to assist. The fracture is at great risk of dislocation and susceptible to positional shifting; therefore she will clearly benefit from hospital bed allowing for beneficial positioning to optimize mobility and transitions in an effort to minimize risk of dislocating the fracture pieces which could require major surgery to remove prosthesis, placement of plates and screws, etc.
--- NOTE | 2016-09-26 08:05 | DISCHARGE SUMMARY E ---
Discharge Summary NAME: LISETH BARBOSA : 1935 AGE: 81Y ADMITTED: 09/19/2016 DISCHARGED: 09/25/2016 DISCHARGE DIAGNOSES: 1. Left femoral shaft fracture in and around artificial prosthesis. 2. 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 3. Hypertension. 4. Hyperthyroidism. DISCHARGE MEDICATIONS: 1. Soma 350 mg at bedtime p.r.n. 2. Colace 100 mg b.i.d. 3. Vitamin D 50,000 units daily. 4. Percocet 5/325 mg 1 tablet q.6 h. as needed. 5. MiraLax 17 gm packet daily. 6. Pravastatin 40 mg at bedtime. 7. CoQ10 daily. 8. Valsartan 160 mg b.i.d. CHIEF COMPLAINT: Fall with left hip pain. HOSPITAL COURSE: The patient is an 81-year-old female with a past medical history of CVA and residual left-sided weakness who also has undergone bilateral hip replacement with prosthesis, hypertension, osteoarthritis, dyslipidemia and permanent pacemaker placement. She was in her usual state of health until approximately 1 hour prior to her presentation, sustaining a fall to the floor from a seated position while trying to align her walker. The patient had exceptional pain to the left hip and was unable to stand on her own. She denies sustaining any additional injury including head strike or loss of consciousness. She denied any medication changes. She was otherwise in her state of health. In the emergency department she was found to have a left-sided lateral proximal metaphyseal fracture with a large fragment but without dislocation of the arthroplasty. However, due to her pain and inability to bear weight, she was referred to the hospitalist for admission. The patient continued to complain of pain with movement, particularly weightbearing, during her hospitalization. She was evaluated by Dr. Wiggins, orthopedic surgeon, who recommended nonweightbearing status and with toe tap only with conservative management for the next 6 weeks, as the fracture appeared stable around the prosthesis. Physical therapy evaluated the patient and recommended treatment to help with range of motion and strengthening. Care coordinators worked tirelessly to find placement in a rehab center but were repeatedly denied by all available centers within the region, stating that she did not meet their criteria for inpatient treatment. Therefore, arrangements have been made for home health with [facility] and outpatient physical and occupational therapy to continue at home. There is family in the area, though they state they have responsibilities of their own and will have limited access to assist the patient. She already has a rolling walker at home but requested durable medical equipment; prescriptions were provided for same. Please see notations regarding medical necessity. On the day of discharge, the patient is hemodynamically stable. She is alert and oriented, sitting in the bedside chair in no obvious distress. Her pain is easily controlled with Percocet 5/325 mg and change in position. She is breathing easily without any accessory muscles to assist with respiration. Oral mucosa is moist. She has good sensation in the left leg with good capillary refill. At this point she is stable for discharged home. I spoke with Dr. Wiggins this morning and we have repeated her x-rays to confirm no dislocation of the fracture fragments which indeed is the case, and he agreed with continued conservative management over the course of the next 6 weeks. His staff has made arrangements for outpatient follow up with Dr. Wiggins. She should follow up with her PCP early next week to assist with additional durable medical equipment and the pain control as needed. She was instructed on signs and symptoms that should prompt a return to the emergency department for further evaluation and management, and she states clear understanding and a willingness to comply. DICTATING PHYSICIAN: ASHOK DUPREE M.D. [id number] PHY#: [id number] ID: [id number] JOB#: [id number] ACCT: [id number] cc:ROBERTO LYNN M.D., LARRY M.D. >
== END 2016-09-25 13:30 | disposition home health service (06) | DRG 560 ==
LOC: ER 19:57 → EH 21:52 → UNDOADMOB 21:52 → EH 22:02 → 4N 09-18 00:54 → INTOOBSV 09-19 15:22 → OBSVTOIN 09-19 15:22
PROVIDERS: ADMIT Internal Medicine; ATTEND Internal Medicine
PROC: 3E0F73Z Introduction of Anti-inflammatory into Respiratory Tract, Via Natural or Artificial Opening (ICD-10-PCS; principal; 2016-09-18)
DX: M97.02XA Periprosthetic fracture around internal prosthetic left hip joint, initial encounter (principal); I69.354 Hemiplegia and hemiparesis following cerebral infarction affecting left non-dominant side; W19.XXXA Unspecified fall, initial encounter; Y92.22 Religious institution as the place of occurrence of the external cause; I10 Essential (primary) hypertension; E05.90 Thyrotoxicosis, unspecified without thyrotoxic crisis or storm; E78.5 Hyperlipidemia, unspecified; M19.90 Unspecified osteoarthritis, unspecified site; Z95.0 Presence of cardiac pacemaker; Z96.643 Presence of artificial hip joint, bilateral; Z90.710 Acquired absence of both cervix and uterus; Z90.12 Acquired absence of left breast and nipple; Z96.652 Presence of left artificial knee joint; Z60.2 Problems related to living alone; Z79.82 Long term (current) use of aspirin; Z79.899 Other long term (current) drug therapy; Z88.7 Allergy status to serum and vaccine; Z88.8 Allergy status to other drugs, medicaments and biological substances; Z88.3 Allergy status to other anti-infective agents; Z82.49 Family history of ischemic heart disease and other diseases of the circulatory system
CPT/HCPCS: 36415; 80048; 83735; 84443; 85025; 99285; G0378; G8978-GP; G8979-GP; J1644; J3490; J7030